=== PATIENT | female | born 1995 | race Caucasian/White ===

== ENCOUNTER 2018-03-28 10:46 | Inpatient (IN) | payer OTHER ==
[~2018-03-28] VITALS: Ht 157.5 cm; Wt 54.4 kg
[2018-03-28 11:03] VITALS: BP 130/73
[2018-03-28 11:36] LABS: HEMATOCRIT 41.5 % (37.0-47.0); HEMOGLOBIN 13.7 gm/dL (12.0-15.0); MCH 29.4 pg (26.0-34.0); MCHC 32.9 g/dL (28.0-37.0); MCV 89.4 fL (80.0-100.0); MPV 9.9 fl. (7.2-11.1); NUCLEATED RBCS 0 /100WBC; PLATELET COUNT* 175 thou/uL (150-400); RBC 4.65 mil/uL (4.20-5.00); WBC 11.2 thou/uL (4.0-11.0)
[2018-03-28 11:41] LABS: URINE BILIRUBIN NEGATIVE (Negative); URINE BLOOD TRACE (Negative); URINE CLARITY CLEAR; URINE COLOR STRAW; URINE GLUCOSE-RANDOM NEGATIVE (Negative); URINE KETONES 2+ (Negative); URINE LEUKOCYTES-REFLEX NEGATIVE (Negative); URINE NITRITE-REFLEX NEGATIVE (Negative); URINE PROTEIN NEGATIVE (Negative); URINE SPECIFIC GRAVITY 1.015 (1.005-1.030); URINE UROBILINOGEN 0.2 E.U./dl (0.2-1.0)
[2018-03-28 11:43] LABS: CREATININE 0.8 mg/dL (0.6-1.3); POTASSIUM 3.3 mmol/L (3.5-5.1)
[2018-03-28 11:45] LABS: INR 1.1; PROTIME 10.5 Seconds (9.20-11.50)
[2018-03-28 11:47] LABS: ALBUMIN 4.5 g/dL (3.4-5.0); TOTAL BILIRUBIN 0.7 mg/dL (<0.1-1.0); TOTAL PROTEIN 8.7 g/dL (6.4-8.2)
[2018-03-28 12:53] LABS: ABSOLUTE LYMPHOCYTES 1.2 thou/uL (0.8-5.3); ABSOLUTE MONOCYTES 0.9 thou/uL (0.0-1.2); ABSOLUTE NEUTROPHILS 9.1 thou/uL (1.6-8.1); ANISOCYTOSIS 1+; PLATELET ESTIMATE ADEQUATE; POIKILOCYTOSIS 1+
--- NOTE | 2018-03-28 14:27 | NUR ---
PT NAUSEA IS BETTER AT THIS TIME, STILL HAS C/O PAIN BUT HAS LESSENED. PT IV ABX AND FLUIDS INFUSING AT THIS TIME. 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 WILL CALL REPORT.
--- NOTE | 2018-03-28 14:42 | NUR ---
ORDER GIVEN TO RUBIN.
[2018-03-28 14:53] VITALS: BP 87/35
--- NOTE | 2018-03-28 15:15 | EKG ---
[place] [address] ELECTROCARDIOGRAM REPORT Name: CARLOS GATES Room: [address] IN [facility]#: [id number] Admission: 03/28/18 Attend Phys: Zackary Dahl MD Discharge: Date of : 89 Report #: [id number] THIS REPORT FOR: //name// [facility] ED Test Date: 2018-03-28 Test Time: 12:07:01 Pat Name: CARLOS GATES Department: Room: [place] [address] Gender: F Manager Oncology: SOPHIA : 1995 Requested By: Valente Jacinto Order Number: [id number] Johnie MD: Jareth Kent Measurements Intervals [place] Rate: 110 P: 51 NH: 136 QRS: 58 QRSD: 78 T: -52 QT: 287 QTc: 389 Interpretive Statements Sinus tachycardia Consider left ventricular hypertrophy Nonspecific T abnormalities, inferior leads No previous ECG available for comparison Electronically Signed On 03-28-2018 15:15:03 CDT by Jareth Kent [email or web address] <ELECTRONICALLY SIGNED> By: Jareth Kent MD, [facility] 03/28/18 1515 1207 [id number] Jareth Kent MD, [facility] /EPI
[2018-03-28 16:50] LABS: AMP/METHAMP Negative (Negative); BARBITURATES Negative (Negative); BENZODIAZEPINES Negative (Negative); COCAINE Negative (Negative); METHADONE Negative (Negative); OPIATES Negative (Negative); PCP Negative (Negative); THC POSITIVE (Negative)
--- NOTE | 2018-03-28 17:50 | NUR ---
ASSUMED CARE OF PATIENT AFTER ADMISSION FROM ED AT 1420. ALERT AND ORIENTED X4. ASSESSMENT COMPLETED AND CHARTED. VSS ON ROOM AIR. CARDIAC MONITORING STARTED AND PATIENT SHOWS TACHY. PATIENT FEBRILE IN THE ED AT 103 AND GIVEN TYLENOL, REDUCED FEVER TO 98. PATIENTS TEMP TAKEN UPON ARRIVAL TO UNIT AND READS 99. TYLENOL GIVEN AGAIN AND REDUCED FEVER TO 98.7. PATIENT GIVEN MORPHINE IV FOR PAIN AND WORKED VERY WELL, PATIENT SLEEPING UPON REASSESSMENT. FLUIDS AND ANTIBIOTICS INFUSED ORDERED. PAIENT RESTING COMFORTABLY IN BED AT THIS EMILY, OURLY ROUNDS MAINTAINED, CALL LIHT IN REACH, NURSING WILL CONTINUE TO MONITOR.
[2018-03-28 20:58] VITALS: BP 100/54
[2018-03-28 23:30] VITALS: BP 98/41
[2018-03-29 04:00] VITALS: BP 96/41
[2018-03-29 04:49] LABS: ABSOLUTE LYMPHOCYTES 1.1 thou/uL (0.8-5.3); ABSOLUTE MONOCYTES 1.6 thou/uL (0.0-1.2); ABSOLUTE NEUTROPHILS 9.7 thou/uL (1.6-8.1); BASOPHILS 0.2 %; EOSINOPHILS 0.1 %; HEMATOCRIT 29.6 % (37.0-47.0); LYMPHOCYTES 9.1 %; MCHC 32.9 g/dL (28.0-37.0); MCV 91.3 fL (80.0-100.0); MONOCYTES 12.7 %; MPV 10.1 fl. (7.2-11.1); NUCLEATED RBCS 0 /100WBC; PLATELET COUNT* 121 thou/uL (150-400); POLYS 77.9 %; RBC 3.24 mil/uL (4.20-5.00); WBC 12.4 thou/uL (4.0-11.0)
[2018-03-29 04:57] LABS: CREATININE 0.7 mg/dL (0.6-1.3); HEMOGLOBIN 9.7 gm/dL (12.0-15.0); POTASSIUM 3.4 mmol/L (3.5-5.1)
[2018-03-29 05:06] LABS: CALCIUM 7.7 mg/dL (8.5-10.1)
--- NOTE | 2018-03-29 06:00 | NUR ---
PT IS ABLE TO COMMUNICATE HER NEEDS TO STAFF EFFECTIVELY. CURRENT PAIN MEDICATION REGIMEN HAS BEEN ADEQUATE FOR CONTROLLING HER PAIN UP TO THIS TIME. PT HAS HAD SOME NAUSEA AND VOMITING THIS SHIFT; PAGED, ORDERS RECEIVED AND IMPLEMENTED. NEPHROLOGY AND INFECTIOUS DISEASE CONSULTED. PT HAS BEEN NPO BY DR. RONDON'S REQUEST, HAS RECEIVED MEDS WITH SMALL SIPS OF WATER. RESULTS OF STAT KUB COMMUNICATED TO DR. RONDON WHEN RECEIVED.
[2018-03-29 08:00] VITALS: BP 121/43
[2018-03-29 10:59] LABS: COMPLEMENT-C4 31 mg/dL (14-44)
--- NOTE | 2018-03-29 11:48 | NUR ---
Pt is A&O. Pt states that she recently moved here from [place], by way of [place] and [place]. Pt stated that she has been "transient" since her mother and her dad left when she was 17. Pt has been staying with friends in [place]. Independent with ADLs. No DME. No hx of HH or SNF. Pt requested a [facility] application. Faxed facesheet to [employer], unsure if Pt will qualify and informed Pt of such. Following for dc needs.
[2018-03-29 12:15] VITALS: BP 99/51
--- NOTE | 2018-03-29 13:57 | 2DMMODE ---
[place] [address] 2 D/M-MODE ECHOCARDIOGRAM Name: CARLOS GATES Room: [address] IN [facility]#: [id number] Admission: 03/28/18 Attend Phys: Zackary Dahl, Discharge: Date of : 89 Date of Service: 03/29/18 1356 Report #: [id number] THIS REPORT FOR: //name// APPROVED REPORT Study performed: 03/29/2018 12:11:53 EXAM: Comprehensive 2D, Doppler, and color-flow Echocardiogram Patient Location: In-Patient Room #: [facility] Status: routine BSA: 1.54 HR: 74 bpm BP: 99/51 mmHg Rhythm: NSR Other Information Study Quality: Excellent Indications Sepsis Fever 2D Dimensions LVEF(%): 68.02 (>50%) IVSd: 8.37 (7-11mm) LVOT Diam: 19.97 (18-24mm) LVDd: 48.73 mm PWd: 9.13 (7-11mm) Ascending Ao: 26.07 (22-36mm) LVDs: 30.22 (25-40mm) Aortic Root: 25.42 mm Ramirez's LVEF: 68.02 % Volumes Left Atrial Volume (Systole) LA ESV Index: 31.10 mL/m2 Aortic Valve AoV Peak Blake.: 1.53 m/s AO Peak Gr.: 9.41 mmHg LVOT Max P.06 mmHg AO Mean Gr.: 5.22 mmHg LVOT Mean P.03 mmHg LVOT Max V: 1.01 m/s AO V2 VTI: 29.70 cm LVOT Mean V: 0.65 m/s MIKE (VTI): 2.32 cm2 LVOT V1 VTI: 21.95 [place] [address] 2 D/M-MODE ECHOCARDIOGRAM Name: CARLOS GATES Room: [address] IN [facility]#: [id number] Admission: 03/28/18 Attend Phys: Zackary Dahl, Discharge: Date of : 89 Date of Service: 03/29/18 1356 Report #: [id number] E/A Ratio: 1.18 MV Decel. Time: 205.12 ms MV E Max Blake.: 0.84 m/s MV PHT: 59.49 ms MVA (PHT): 3.70 cm2 TDI E/Lateral E': 4.00 E/Medial E': 4.67 Medial E' Blake.: 0.18 m/s Lateral E' Blake.: 0.21 m/s Pulmonary Valve PV Peak Blake.: 0.94 m/s PV Peak Gr.: 3.52 mmHg Tricuspid Valve RAP Estimate: 5.00 mmHg TR Peak Gr.: 24.06 mmHg RVSP: 29.06 mmHg PA Pressure: 29.06 mmHg Left Ventricle The left ventricle is normal size. There is normal LV segmental wall motion. There is normal left ventricular wall thickness. Left ventricular systolic function is normal. The left ventricular ejection fraction is within the normal range. LVEF is 65-70%. The left ventricular diastolic function is normal. Right Ventricle Right ventricle is mildly dilated. The right ventricular systolic function is normal. Atria The left atrium size is normal. Right atrium is mildly dilated. Aortic Valve The aortic valve is normal in structure. No aortic regurgitation is present. There is no aortic valvular vegetation. There is no aortic valvular stenosis. Mitral Valve The mitral valve is normal in structure. Trace mitral regurgitation. No evidence of mitral valve stenosis. Tricuspid Valve The tricuspid valve is normal in structure. Mild tricuspid regurgitation estimated pa pressure 35 [place] [address] 2 D/M-MODE ECHOCARDIOGRAM Name: AVA GATESDELFINA Pretty Room: [address]#: [id number] Admission: 03/28/18 Attend Phys: Zackary Dahl, Discharge: Date of : 89 Date of Service: 03/29/18 1356 Report #: [id number] Pulmonic Valve Pulmonic valve is not well visualized. There is no pulmonic valvular regurgitation. Great Vessels The aortic root is normal in size. IVC is normal in size and collapses with >50% inspiration Pericardium There is no pericardial effusion. <Conclusion> LVEF is 65-70%. Right ventricle is mildly dilated. There is no aortic valvular vegetation. <ELECTRONICALLY SIGNED> By: Jaun Lowe MD, FACC 03/29/18 1356 1356 1356 Jaun Lowe MD, FACC /INF
[2018-03-29 15:55] VITALS: BP 117/52
--- NOTE | 2018-03-29 16:31 | NUR ---
NO RELIEF OF FEVER DESPITE MEDS. PT UNCOMFORTABLE-REPORTS CHILLS AND BODY ACHES. PT GIVEN COLD WASHCLOTHS AND ICE WATER. DR CATERINA SOSA
--- NOTE | 2018-03-29 17:00 | NUR ---
PT INFORMED OF CHANGING PAIN MEDICATIONS. PT IS HESTITANT TO TAKE OPIATES SHE IS CONCERNED ABOUT ADDICTION. PT EDUCATED ON OPIATE ADDICTION. ASKED PT ABOUT PREVIOUS HOSPITALIZATIONS. PT UNSURE OF HOSPITAL NAMES. SHE STATES SHE KNOWS WHAT HOSPITAL SHE GAVE AT WHICH WAS [facility]
--- NOTE | 2018-03-29 17:25 | NUR ---
PT REMAINS FEBRILE THROUGHOUT SHIFT DESPITE MEDS BEING GIVEN. PT REPORTS BODY ACHES,JOINT PAIN AND HEADACHE. IVF INFUSING. POOR APPETITE. PT UP IN ROOM WITH STEADY GAIT.
[2018-03-29 20:00] VITALS: BP 96/46
[2018-03-30] VITALS: BP 105/55
[2018-03-30 04:00] VITALS: BP 100/52
--- NOTE | 2018-03-30 04:52 | NUR ---
ASSUMED PT CARE AT 1930, NURSING ASSESSMENT COMPLETED AT START OF SHIFT, PT CONTINUES TO VOICE BACK PAIN, PRN PAIN MEDICATION ADMINISTERED AND EFFECTIVE. PT TRACING SINUS BRADYCARDIA IN MID 40'S/SINUS RHYTHM THIS SHIFT. HOURLY ROUNDING COMPLETED, PT CONINUES ON IV FLUIDS. CALL LIGHT WITHIN REACH. PT SLOWLY PROGRESSING TOWARDS GOALS.
[2018-03-30 05:03] LABS: ABSOLUTE LYMPHOCYTES 0.4 thou/uL (0.8-5.3); ABSOLUTE MONOCYTES 0.4 thou/uL (0.0-1.2); BASOPHILS 0.1 %; HEMOGLOBIN 10.6 gm/dL (12.0-15.0); LYMPHOCYTES 3.6 %; MCHC 33.2 g/dL (28.0-37.0); MCV 90.5 fL (80.0-100.0); MPV 10.3 fl. (7.2-11.1); NUCLEATED RBCS 0 /100WBC; PLATELET COUNT* 141 thou/uL (150-400); POLYS 92.3 %; RBC 3.54 mil/uL (4.20-5.00); RDW-CV 14.8 % (10.5-14.5); WBC 10.8 thou/uL (4.0-11.0)
[2018-03-30 05:30] LABS: ALBUMIN 2.9 g/dL (3.4-5.0); CALCIUM 8.8 mg/dL (8.5-10.1); CREATININE 0.7 mg/dL (0.6-1.3); POTASSIUM 3.7 mmol/L (3.5-5.1); TOTAL BILIRUBIN 0.2 mg/dL (<0.1-1.0); TOTAL PROTEIN 6.4 g/dL (6.4-8.2)
[2018-03-30 08:00] VITALS: BP 103/61
[2018-03-30 11:57] VITALS: BP 103/53
[2018-03-30 15:41] VITALS: BP 113/64
--- NOTE | 2018-03-30 18:17 | NUR ---
RECEIVED RPEORT FROM JITENDRA BLAS. ASSUMED CARE OF PT AROUND 0730. VSS. O2 SAT 97% ON RA. PT A&O X4. CARIAC MONITOR IN PLAE TRACING SB TO SR WITH PAC'S. IV TO LEFT AC INTACT AND INFUSING IVF. PT UP TO VOID FREQUENTLY. PT HAS HAD POOR APPETITE THIS SHIFT. ALTERNATIVE FOOD'S OFFERED FROM [employer] AND [employer]. PT HAS REPORTED BACK AND JOINT PAIN THROUGHOUT THE SHIFT THAT HAS BEEN MANAGED WITH PO PAIN MEDICATION - EFFECTIVE. PT'S FRIENDS VISITED THIS AFTERNOON. PT HAS BEEN AFEBRILE THIS SHIFT. PT CURRENTLY WATCHING TV IN BED. LOW FALL RISK PRECAUTIONS IN PLACE. CALL LIGHT IS WITHINR REACH. HORULY ROUNDING PERFORMED. ALL NEEDS MET AT THIS TIME. WCTM FOR DURATION OF SHIFT.
[2018-03-30 20:00] VITALS: BP 100/53
[2018-03-31] VITALS: BP 94/57
[2018-03-31 04:00] VITALS: BP 111/61
--- NOTE | 2018-03-31 05:16 | NUR ---
ASSUMED PT CARE AT 1930. NURSING ASSESSMENT COMPLETED AT START OF SHIFT. PT TRACING SINUS ARRHYTHMIA THIS SHIFT WITH HR IN 50'S TO 80'S. PT VERBALIZES FEELING BETTER. PRN PAIN MEDICATION EFFECTIVE. PT AFEBRILE THIS SHIFT. HOURLY ROUNDING COMPLETED. CALL LIGHT WITHIN REACH. PT PROGRESSING TOWADS GOALS.
[2018-03-31 08:00] VITALS: BP 112/52
[2018-03-31] MEDS ORDERED: IBUPROFEN 400400 M2 PO (12:01)
[2018-03-31 12:05] VITALS: BP 112/52
--- NOTE | 2018-04-01 07:18 | CON ---
[address] [address] CONSULTATION Name: CARLOS GATES Room: [address] IN [facility]#: [id number] Admission: 03/28/18 Attend Phys: Zackary Dahl MD Discharge: 03/31/18 Date of : 89 Report #: [id number] THIS REPORT FOR: //name// CC: Zackary Dahl FAM physician/PCP DATE OF SERVICE: 03/29/2018 INFECTIOUS DISEASE CONSULTATION ATTENDING PHYSICIAN: Zackary Dahl M.D. REASON FOR EVALUATION: Febrile illness, perhaps complicated urinary tract infection, likely in the setting of a more chronic illness. HISTORY OF PRESENT ILLNESS: Chart reviewed, patient examined. This is a 22-year-old female with history of Von Willebrand disease with roughly 2- to 3-day history of suprapubic and low back pain, associated nausea with vomiting with high-grade temperature elevation to 103 at the time of her visit to the emergency room. Evaluation showed question of a right kidney nephritis, possible small ureteral stone. Urinalysis was somewhat unrevealing; however, she was empirically started on therapy initially with ceftriaxone, now on ciprofloxacin. With further discussion, she describes underlying illness dating back perhaps 6-7 months, started with generalized aches and pains, really could not distinguish arthritis versus myalgia, no new onset eruptions. She has been evaluated on a couple different occasions without a firm diagnosis. 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 She is not sexually active at this point. No history of sexually transmitted diseases. She denies any particular exposure history. No animals. No recent arthropod exposure, no dietary indiscretion. She is lucid at this point. At times, she feels some chest discomfort. She has irregular periods due to her Von Willebrand's. ALLERGIES: DIPHENHYDRAMINE. CURRENT MEDICATIONS: Include nicotine patch, ibuprofen, pantoprazole, morphine, hydrocodone, enoxaparin, ciprofloxacin 400 IV b.i.d., ondansetron, docusate. PAST MEDICAL HISTORY: As described above, Von Willebrand's. Notes mother had Still's disease. SOCIAL HISTORY: She denies illicit drug use. No tobacco or ethanol use. FAMILY HISTORY: Noncontributory. REVIEW OF SYSTEMS: [place] [address] CONSULTATION Name: CARLOS GATES Sukhwinder Room: [address]#: [id number] Admission: 03/28/18 Attend Phys: Zackary Dahl MD Discharge: 03/31/18 Date of : 95 Report #: [id number] PHYSICAL EXAMINATION: GENERAL: She is alert, cooperative, in mild to moderate distress. She is lucid. VITAL SIGNS: Temperature 100.5, T-max yesterday of 103.6, pulse 92, respirations 18, blood pressure is 121/43. SKIN: Warm, dry. No appreciated rashes. No adenopathy. HEENT: Unremarkable. NECK: Supple. LUNGS: Clear to auscultation. HEART: Regular. Borderline tachycardic. I do not appreciate murmur. ABDOMEN: Soft, mildly distended. There are no peritoneal signs. GENITOURINARY: Deferred. RECTAL: Deferred. LABORATORY DATA: DEVIN screen pending. levels are normal. Blood cultures sterile thus far. Electrolytes: Sodium 138, potassium 3.4, chloride 106, bicarb is 26, anion gap of 6, BUN and creatinine 4 and 0.7 and glucose of 104. Estimated GFR of 105. Plain film of the abdomen was otherwise unremarkable. CBC: White count of 12.4, H and H 9.7 and 29.5, platelets of 121, does have a monocytosis. Positive drug screen for marijuana. CT abdomen and pelvis, very low density in the right kidney suggestive of focal pyelonephritis, minimal caliectasis and right ureteral dilatation, concern about a stone. Chest x-ray, no acute process. Rapid Strep was negative. Lactic acid 1.8. Liver functions unremarkable. Total protein of 8.7, albumin of 4.5. PT 10.5, INR 1.1. PCT qualitative negative. Urinalysis generally unremarkable. ASSESSMENT: Febrile illness with signs and symptoms, may be related to genitourinary tract. Certainly, infectious complication would be the concern in terms of the acute illness. It is reasonable to continue empiric antimicrobials. We will await culture results. Does raise question of autoimmune. We will await the DEVIN. We can get a sed rate. We are going to do an echo. We will follow clinically for any new signs or symptoms. <ELECTRONICALLY SIGNED> By: Mickey Sanchez MD 04/01/18717 1135 191Mickey Sanchez MD /nt
[2018-04-01 10:11] LABS: ANA INTERPRETATION Positive (Negative); ANTI-DNA SCREEN 10 IU/mL (0-9)
== END 2018-03-31 12:53 | disposition home or self-care (01) | DRG 872 ==
LOC: M.ERS 10:46 → M.2W 13:54 → M.TBA-ER 13:54 → M.2W 15:09
PROVIDERS: Nurse Practitioner Family; ADMIT Internal Medicine
DX: A41.9 Sepsis, unspecified organism (principal); N20.0 Calculus of kidney; F17.210 Nicotine dependence, cigarettes, uncomplicated; E86.0 Dehydration; I95.9 Hypotension, unspecified; B95.0 Streptococcus, group A, as the cause of diseases classified elsewhere; I00 Rheumatic fever without heart involvement; Z88.8 Allergy status to other drugs, medicaments and biological substances